=== PATIENT | male | born 1965 | race Two or more races ===

== ENCOUNTER 2016-12-12 21:41 | Emergency (ER) | payer BC ==
[2016-12-12] MEDS ORDERED: VIBRAMYCIN100 M1 PO (22:28)
[2016-12-12] MEDS ORDERED: VENTOLIN HFA18 G2 PO (22:29)
[2016-12-12] MEDS ORDERED: NAPROSYN500 M1 PO (22:29)
== END 2016-12-12 23:59 ==
LOC: EDMED 21:41
DX: N43.3 Hydrocele, unspecified (principal)